=== PATIENT | female | born 1965 | race Caucasian/White ===

== ENCOUNTER 2018-06-07 13:34 | Emergency (ER) | payer OTHER ==
[2018-06-07 13:53] VITALS: TEMP 98.9; BMI 25.7
[2018-06-07 14:13] VITALS: PULSE 84
--- NOTE | 2018-06-07 14:14 | PDOC ---
History of Present Illness - General Chief Complaint: Injury Stated Complaint: bump on head s/p fell on Time Seen by Provider: 06/07/18 14:13 Past History - Past Medical History Allergies/Adverse Reactions: Allergies Allergy/AdvReac Type Severity Reaction Status Date / Time No Known Allergies Allergy Verified 06/07/18 13:45 Home Medications: Ambulatory Orders NK [No Known Home Medication] 06/07/18 COPD: No Other medical history: pt denies - Suicide/Smoking/Psychosocial Hx Smoking History: Current every day smoker Number of Cigarettes Smoked Daily: 6 Information on smoking cessation initiated: Yes 'Breaking Loose' booklet given: 06/07/18 Hx Alcohol Use: No Drug/Substance Use Hx: No Substance Use Type: None *Physical Exam - Vital Signs Last Vital Signs Temp Pulse Resp BP Pulse Ox 98.9 F 84 18 193/109 H 99 06/07/18 13:36 06/07/18 14:12 06/07/18 14:12 06/07/18 14:12 06/07/18 14:12 Medical Decision Making - Medical Decision Making Pt was seen at bedside, also will be seen by attending [ ]. Pt presenting with PE showed [] Considering [vs vs] Ordered work-up including [labs] and [imaging]. Provided [interventions/meds] for improvement of [pain/symptom control]. Will continue to reassess pt and monitor for symptomatic improvement. Repeat BP showed 157/79. 06/07/18 14:55 *DC/Admit/Observation/Transfer Diagnosis at time of Disposition: Closed head injury Qualifiers: Encounter type: initial encounter Qualified Code(s): S09.90XA - Unspecified injury of head, initial encounter - Discharge Dispostion Disposition: HOME Condition at time of disposition: Improved Decision to Admit order: No - Referrals Referrals: Shabana Wolff [Non Staff, Medical] - [facility] [Provider Group] - Patient Instructions Printed Discharge Instructions: Smoking Cessation, DI for Closed Head Injury Additional Instructions: You were seen in the ER today after a fall and head injury. Your exam today was normal, and your blood pressure improved during your stay. Please follow-up with your primary care doctor within 1-2 days to discuss your visit and make sure your symptoms have improved. Please return to the ER if you have any pain, vision changes, development of fevers or chills, loss of consciousness, inability to tolerate food or fluids, or any other concerns. - Post Discharge Activity
--- NOTE | 2018-06-07 14:24 | PDOC ---
Attending Attestation - Resident Resident Name: ShelbySelina - ED Attending Attestation I have performed the following: I have examined & evaluated the patient, The case was reviewed & discussed with the resident, I agree w/resident's findings & plan, Exceptions are as noted - HPI HPI: 06/07/18 15:08 Patient bumped her head on Tuesday, relatively minor injury, no loss of consciousness, no symptoms until yesterday, when she describes rolling over in bed and hearing a "crack" it came from the back of her neck and occipital scalp. This was momentary and was not accompanied by any other symptoms. She now has no head or neck pain, and no neurological symptoms, with a steady gait, and no nausea or vomiting. - Physicial Exam PE: 06/07/18 15:09 Physical exam is normal. Vital signs are stable. Alert and oriented 3, no acute distress, cheerful and cooperative. There is no evidence of trauma to the scalp or head, with no palpable hematoma, depression, crepitus. Neck exam is also normal with no deformity or point tenderness and full range of motion without pain Neurological exam is normal and gait is steady and unimpaired. - Medical Decision Making 06/07/18 15:13 Assessment: Patient's brief symptom not related to significant head injury. No evidence of intracranial trauma or neurologic deficit Plan: Reassure, follow up if additional symptoms develop.
[2018-06-07 14:45] VITALS: BP 157/93
== END 2018-06-07 15:22 | disposition home or self-care (01) ==
LOC: FER 13:34
DX: S09.90XA Unspecified injury of head, initial encounter (principal); W18.39XA Other fall on same level, initial encounter; Y93.89 Activity, other specified; Y92.9 Unspecified place or not applicable; F17.210 Nicotine dependence, cigarettes, uncomplicated
CPT/HCPCS: 99283-25